=== PATIENT | female | born 1960 | race Caucasian/White ===

== ENCOUNTER 2021-08-09 10:44 | Inpatient (IN) | payer MEDICAID, OTHER ==
[~2021-08-09] VITALS: Ht 165.1 cm; Wt 57.2 kg
[~2021-08-09 10:44] MED LIST: GABA600T; LEVO112T32; LISI-716; SERT50TA
[2021-08-09 11:46] LABS: Basophils # (auto) 0 10 ^3/uL (0-0.2); Basophils % (auto) 0.7 % (0.0-2.0); Eosinophils # (auto) 0.1 10 ^3/uL (0-0.8); Eosinophils % (auto) 1.1 % (0.0-7.0); Hemoglobin 11.9 g/dL (12.2-16.2); Lymphocytes # (auto) 1.8 10 ^3/uL (0.4-5.4); Lymphocytes % (auto) 26.4 % (10.0-50.0); Mean Corpuscular Hemoglobin 32.7 pg (28.0-32.0); Mean Corpuscular Hgb Conc. 34.1 g/dL (32.0-36.0); Mean Corpuscular Volume 95.9 fL (80.0-100.0); Monocytes # (auto) 0.6 10 ^3/uL (0-1.3); Monocytes % (auto) 9.2 % (0.0-12.0); Neutrophils # (auto) 4.3 10 ^3/uL (1.6-8.6); Neutrophils % (auto) 62.6 % (37.0-80.0); Red Blood Cells 3.65 10^6/uL (4.0-5.20); Red Cell Distribution Width 13.4 % (11.8-14.3); White Blood Cell 6.9 10^3/uL (4.4-10.8)
[2021-08-09 12:33] LABS: Albumin 3.5 g/dL (3.4-5.0); Anion Gap 4 (5-15); Aspartate Aminotransferase 19 U/L (15-37); BUN/Creatinine Ratio 21.3; Blood Urea Nitrogen 16 mg/dL (7-18); Calcium 8.7 mg/dL (8.5-10.1); Carbon Dioxide 27 mmol/L (21-32); Chloride 106 mmol/L (98-107); GFR African American 101 mL/min; GFR Non-African American 84 mL/min; Glucose 91 mg/dL (74-106); Potassium 3.9 mmol/L (3.5-5.1); Sodium 137 mmol/L (136-145)
[2021-08-09 12:49] LABS: Alanine Aminotransferase 27 U/L (13-56); Alkaline Phosphatase 65 U/L (45-117); Bilirubin, Total 0.3 mg/dL (0.2-1.0); Total Protein 6.8 g/dL (6.4-8.2)
[2021-08-09] MEDS ORDERED: IOHEXOL 350 MG/ML 100ML IJ ONE (13:23)
[2021-08-09] MEDS ORDERED: MORPHINE SULFATE INJECTION 2 MG/ML SYRG IV PRN ×2 (16:45→22:30)
[2021-08-09] MEDS ORDERED: NITROGLYCERIN 0.4 MG SL TAB SL PRN (16:45)
[2021-08-09] MEDS ORDERED: HYDROcodone-ACET 5/325MG TAB PO ONE (22:30)
[2021-08-09] MEDS ORDERED: HYDROcodone-ACET 5/325MG TAB PO PRN (22:30)
[2021-08-09] MEDS ORDERED: LACTULOSE 20Gm/30ML SOLN PO PRN (22:30)
[2021-08-09] MEDS ORDERED: hydrOXYzine 25 MG TAB or CAP PO PRN (22:30)
[2021-08-09] MEDS ORDERED: hydrALAZINE HCL 20 MG/ML VL IV PRN (22:30)
[2021-08-09] MEDS ORDERED: PANTOPRAZOLE 40 MG/10 ML VIAL INJ IV ONE (22:30)
[2021-08-09] MEDS ORDERED: DOCUSATE SOD 100 MG CAP PO PRN (22:30)
[2021-08-09] MEDS ORDERED: ONDANSETRON HCL 4 MG/2 ML VIAL IV PRN (22:30)
[2021-08-09] MEDS ORDERED: SUCRALFATE 1 GM/10 ML ORAL SUSP PO ONE (22:30)
[2021-08-09] MEDS ORDERED: IPRATROPIUM BROM 0.5 MG/2.5ML INH SOL NEB ONE (22:30)
[2021-08-09] MEDS: SODIUM CHLORIDE 0.9% 1,000 ML IV SCH (22:49)
[2021-08-09 23:03] VITALS: BP 147/84
[2021-08-09 23:15] VITALS: BP 161/93
[2021-08-09 23:47] LABS: INR 0.99 (0.9-1.15); Partial Thromboplastin Time 23.8 sec (23.6-33.0)
[2021-08-09 23:49] LABS: Magnesium 2.2 mg/dL (1.6-2.6)
[2021-08-09 23:55] LABS: Phosphorus 3.9 mg/dL (2.5-4.90)
[2021-08-10] MEDS ORDERED: LEVO100I PO (00:41)
[2021-08-10] MEDS ORDERED: TRAZ1TAB12 PO (00:42)
[2021-08-10] MEDS ORDERED: PROP20TA73 PO (00:42)
[2021-08-10] MEDS ORDERED: OMEP20TA85 PO (00:42)
[2021-08-10] MEDS ORDERED: OME20GT PO (00:42)
[2021-08-10] MEDS ORDERED: IPRATROPIUM BROM 0.5 MG/2.5ML INH SOL NEB SCH (02:00)
[2021-08-10] MEDS ORDERED: IPRATROPIUM BROM 0.5 MG/2.5ML INH SOL NEB PRN (02:00)
[2021-08-10] MEDS ORDERED: traZODone HCL 50 MG TAB PO ONE (02:15)
[2021-08-10 05:00] VITALS: BP 132/79
[2021-08-10 06:41] LABS: Basophils # (auto) 0.1 10 ^3/uL (0-0.2); Basophils % (auto) 1.1 % (0.0-2.0); Eosinophils # (auto) 0.1 10 ^3/uL (0-0.8); Eosinophils % (auto) 0.9 % (0.0-7.0); Hematocrit 35.8 % (36.0-46.0); Hemoglobin 12.5 g/dL (12.2-16.2); Lymphocytes # (auto) 1.5 10 ^3/uL (0.4-5.4); Lymphocytes % (auto) 21.3 % (10.0-50.0); Mean Corpuscular Hemoglobin 33.1 pg (28.0-32.0); Mean Corpuscular Hgb Conc. 34.8 g/dL (32.0-36.0); Mean Corpuscular Volume 95.1 fL (80.0-100.0); Monocytes # (auto) 0.8 10 ^3/uL (0-1.3); Monocytes % (auto) 11.2 % (0.0-12.0); Neutrophils # (auto) 4.6 10 ^3/uL (1.6-8.6); Neutrophils % (auto) 65.5 % (37.0-80.0); Nucleated Red Blood Cells % 0.1 %; Red Blood Cells 3.76 10^6/uL (4.0-5.20); Red Cell Distribution Width 13.2 % (11.8-14.3)
[2021-08-10] MEDS: SUCRALFATE 1 GM/10 ML ORAL SUSP PO SCH ×4 (06:51→21:47)
[2021-08-10] MEDS: LEVOTHYROXINE SODIUM 88 MCG TAB PO SCH (06:51)
[2021-08-10 06:56] LABS: Chloride 109 mmol/L (98-107); Partial Thromboplastin Time 24.3 sec (23.6-33.0); Potassium 3.9 mmol/L (3.5-5.1); Sodium 140 mmol/L (136-145)
[2021-08-10 07:05] LABS: Alanine Aminotransferase 24 U/L (13-56); Albumin 3.3 g/dL (3.4-5.0); Alkaline Phosphatase 65 U/L (45-117); Anion Gap 5 (5-15); Aspartate Aminotransferase 16 U/L (15-37); BUN/Creatinine Ratio 18.8; Bilirubin, Total 0.5 mg/dL (0.2-1.0); Blood Urea Nitrogen 15 mg/dL (7-18); CRP High Sensitivity 0.05 mg/dL (< 0.3); Carbon Dioxide 26 mmol/L (21-32); Cholesterol 257 mg/dL (< 200); GFR African American 94 mL/min; GFR Non-African American 78 mL/min; Glucose 105 mg/dL (74-106); HDL Cholesterol 75 mg/dL (40-59); Lipase 80 U/L (73-393); Magnesium 2.1 mg/dL (1.6-2.6); Phosphorus 4.1 mg/dL (2.5-4.90); Total Protein 6.8 g/dL (6.4-8.2); Triglycerides 143 mg/dL (< 150); Uric Acid 3.3 mg/dL (2.6-6.0)
[2021-08-10 08:25] VITALS: BP 167/95
[2021-08-10 09:00] VITALS: BP 167/95
[2021-08-10] MEDS: CHOLECALCIFEROL (VITD3) 2,000 UNIT CAP/TAB PO SCH (09:44)
[2021-08-10] MEDS: CYANOCOBALAMIN 500 MCG TAB PO SCH (09:44)
[2021-08-10] MEDS: ASPirin 81 mg TAB PO SCH (09:44)
[2021-08-10] MEDS: SERTRALINE HCL 50 MG TAB PO SCH (09:45)
[2021-08-10] MEDS: ENOXAPARIN SOD 40 MG/0.4 ML SYRINGE SC SCH (09:45)
[2021-08-10] MEDS: PANTOPRAZOLE 40 MG/10 ML VIAL INJ IV SCH (09:45)
[2021-08-10] MEDS: PROPRANOLOL HCL 20 MG TAB PO SCH ×2 (10:35→21:48)
[2021-08-10] MEDS: hydrALAZINE HCL 20 MG/ML VL IV PRN (10:36)
[2021-08-10 13:00] VITALS: BP 147/85
[2021-08-10] MEDS ORDERED: ACETAMINOPHEN 325 MG TAB PO PRN (13:00)
[2021-08-10] MEDS ORDERED: HYDROcodone-ACET 5/325MG TAB PO PRN (13:30)
[2021-08-10 17:00] VITALS: BP 151/92
[2021-08-10] MEDS: SODIUM CHLORIDE 0.9% 1,000 ML IV SCH (17:20)
[2021-08-10 21:48] VITALS: BP 149/101
[2021-08-10] MEDS: LORazepam 0.5 MG TAB PO PRN (21:51)
[2021-08-10] MEDS ORDERED: ATORVASTATIN 20 MG TAB PO SCH (22:00)
[2021-08-11] MEDS: hydrALAZINE HCL 20 MG/ML VL IV PRN (05:06)
[2021-08-11 05:40] VITALS: BP 157/92
[2021-08-11] MEDS: LEVOTHYROXINE SODIUM 88 MCG TAB PO SCH (06:53)
[2021-08-11] MEDS: SUCRALFATE 1 GM/10 ML ORAL SUSP PO SCH ×2 (06:53→15:15)
[2021-08-11] MEDS: SODIUM CHLORIDE 0.9% 1,000 ML IV SCH (07:50)
[2021-08-11 09:00] VITALS: BP 157/96
[2021-08-11] MEDS: LORazepam 0.5 MG TAB PO PRN (09:54)
[2021-08-11] MEDS: CYANOCOBALAMIN 500 MCG TAB PO SCH (09:56)
[2021-08-11] MEDS: CHOLECALCIFEROL (VITD3) 2,000 UNIT CAP/TAB PO SCH (09:56)
[2021-08-11] MEDS: PANTOPRAZOLE 40 MG/10 ML VIAL INJ IV SCH (09:57)
[2021-08-11] MEDS: ASPirin 81 mg TAB PO SCH (09:57)
[2021-08-11] MEDS: ENOXAPARIN SOD 40 MG/0.4 ML SYRINGE SC SCH (09:57)
[2021-08-11] MEDS ORDERED: NICOTINE 21MG/24 HR TOPICAL PATCH TD SCH (10:00)
[2021-08-11] MEDS: SERTRALINE HCL 50 MG TAB PO SCH (10:00)
[2021-08-11] MEDS ORDERED: ADENOSINE 48 MG in GIVE UN-DILUTED 0 ML IV STA (10:32)
[2021-08-11 13:00] VITALS: BP 158/93
[2021-08-11] MEDS: PROPRANOLOL HCL 20 MG TAB PO SCH (15:12)
[2021-08-11 17:00] VITALS: BP 148/94
[2021-08-12 04:47] LABS: LDL Cholesterol 148 mg/dL (< 100)
== END 2021-08-11 19:21 | disposition left against medical advice (07) | DRG 198 ==
LOC: ER 10:44 → TELE 16:43 → TELE-CENTR 23:12
PROVIDERS: ADMIT Hospitalist; ATTEND Family Medicine
DX: I24.9 Acute ischemic heart disease, unspecified (principal); D64.9 Anemia, unspecified; E05.90 Thyrotoxicosis, unspecified without thyrotoxic crisis or storm; F41.0 Panic disorder [episodic paroxysmal anxiety]; K29.00 Acute gastritis without bleeding; I16.9 Hypertensive crisis, unspecified; Z53.29 Procedure and treatment not carried out because of patient's decision for other reasons; F32.9 Major depressive disorder, single episode, unspecified; K21.9 Gastro-esophageal reflux disease without esophagitis; Z20.822 Contact with and (suspected) exposure to COVID-19; E78.00 Pure hypercholesterolemia, unspecified; E78.5 Hyperlipidemia, unspecified; E89.0 Postprocedural hypothyroidism; F17.200 Nicotine dependence, unspecified, uncomplicated; I10 Essential (primary) hypertension; Z82.3 Family history of stroke; Z90.710 Acquired absence of both cervix and uterus; Z71.6 Tobacco abuse counseling
CPT/HCPCS: 36415; 71045; 71275; 78452; 80053; 80061; 82728; 83615; 83690; 83735; 83880; 84100; 84443; 84484; 84550; 85025; 85379; 85610; 85652; 85730; 86141; 87040; 87426; 93005; 93017; 93306; C9113; G0378; J0153; J2405